=== PATIENT | male | born 1995 ===

== ENCOUNTER 2021-04-23 08:36 | Emergency (ER) | payer SELFPAY ==
--- NOTE | 2021-04-23 09:18 | EDM.PDOC ---
ED HPI GENERAL MEDICAL PROBLEM - General Chief Complaint: ENT Problem Stated Complaint: RIGHT EAR PAIN Time Seen by Provider: 04/23/21 08:50 Source of Information: Reports: Patient History Limitations: Reports: No Limitations - History of Present Illness INITIAL COMMENTS - FREE TEXT/NARRATIVE: Patient presented to the Ed because of bilateral ear pain and sore throat which started 2 days ago. There is no fever, chills, cough/cold. No N/V/D. Sore throat, R ear Pain Score (Numeric/FACES): 6 - Related Data Allergies Allergy/AdvReac Type Severity Reaction Status Date / Time No Known Allergies Allergy Verified 04/23/21 08:52 Home Meds: Home Meds Amoxicillin/Clavulanate K [Augmentin 875-125 MG] 1 tab PO BID #20 tablet 04/23/21 [Rx] Ibuprofen 800 mg PO TID PRN #30 tablet 04/23/21 [Rx] ED ROS ENT - Review of Systems Review Of Systems: See Below Constitutional: Reports: No Symptoms HEENT: Reports: Ear Pain, Throat Pain Respiratory: Reports: No Symptoms Cardiovascular: Reports: No Symptoms Endocrine: Reports: No Symptoms GI/Abdominal: Reports: No Symptoms : Reports: No Symptoms Musculoskeletal: Reports: No Symptoms Skin: Reports: No Symptoms Neurological: Reports: No Symptoms Psychiatric: Reports: No Symptoms ED EXAM, ENT - Physical Exam Exam: See Below Exam Limited By: No Limitations General Appearance: Alert, No Apparent Distress Eye Exam: Bilateral Eye: PERRL Ears: Normal External Exam, Normal Canal, TM Dullness, TM Erythema Nose: Normal Inspection, Normal Mucousa, No Blood Mouth/Throat: Pharyngeal Erythema Head: Atraumatic, Normocephalic Neck: Normal Inspection, Supple, Non-Tender, Full Range of Motion Respiratory/Chest: No Respiratory Distress, Lungs Clear, Normal Breath Sounds, No Accessory Muscle Use, Chest Non-Tender Cardiovascular: Normal Peripheral Pulses, Regular Rate, Rhythm, No Edema, No Gallop, No JVD, No Murmur, No Rub GI/Abdominal: Normal Bowel Sounds, Soft, Non-Tender, No Organomegaly, No Distention, No Abnormal Bruit, No Mass Back: Normal Inspection, Full Range of Motion Extremities: Normal Inspection, Normal Range of Motion, Non-Tender, No Pedal Edema, Normal Capillary Refill Neurological: Alert, Oriented, CN II-XII Intact, Normal Cognition, Normal Gait, Normal Reflexes, No Motor/Sensory Deficits Psychiatric: Normal Affect, Normal Mood Skin: Warm, Dry, Intact, Normal Color, No Rash Course - Vital Signs Last Recorded V/S: Last Vital Signs Temp 36.5 C 04/23/21 08:45 Pulse 89 04/23/21 08:45 Resp 18 04/23/21 08:45 BP 116/71 04/23/21 08:45 Pulse Ox 98 04/23/21 08:45 Departure - Departure Time of Disposition: 09:15 Disposition: Home, Self-Care 01 Condition: Good Clinical Impression: Otitis media, Pharyngitis - Discharge Information Prescriptions: Amoxicillin/Clavulanate K [Augmentin 875-125 MG] 1 tab PO BID #20 tablet Ibuprofen 800 mg PO TID PRN #30 tablet PRN Reason: Pain Instructions: Pharyngitis, Otitis Media, Adult, [id number] Forms: ED Department Discharge Additional Instructions: Please read discharge instructions on otitis media(middle ear infection) Increase oral fluids Augmentin 875 mg twice daily for 10 days Ibuprofen 800 mg with tylenol 1000 mg every 8 hours as needed for pain Follow up as needed Sepsis Event Note (ED) - Evaluation Sepsis Screening Result: No Definite Risk - Focused Exam Vital Signs: Vital Signs Temp Pulse Resp BP Pulse Ox 04/23/21 08:45 36.5 C 89 18 116/71 98
== END 2021-04-23 09:34 | disposition home or self-care (01) ==
LOC: FB.ED 08:36
DX: H66.93 Otitis media, unspecified, bilateral (principal); J02.9 Acute pharyngitis, unspecified
CPT/HCPCS: 99282